=== PATIENT | male | born 1995 | race Caucasian/White ===

== ENCOUNTER 2020-11-15 11:21 | Emergency (ER) | payer MEDICAID, SELFPAY ==
[2020-11-15 11:24] VITALS: BP 128/88; PULSE 85; RESP 16; TEMP 36.6; O2SAT 97
[2020-11-15] MEDS: Normal Saline 1,000 ML 1000 ML IV (12:05)
[2020-11-15] MEDS: Ketorolac 30 MG/ML VIAL IVP (12:10)
[2020-11-15] MEDS: Ondansetron 4 MG/2 ML VIAL IVP (12:15)
[2020-11-15 12:17] LABS: Absolute Basophil Count 0.01 10^3/uL (0.0-0.2); Absolute Eosinophil Count 0.01 10^3/uL (0.0-0.7); Absolute Lymphocyte Count 1.28 10^3/uL (1.2-3.4); Absolute Monocyte Count 0.53 10^3/uL (0.1-0.8); Absolute Neutrophil Count 1.06 10^3/uL (1.2-6.7); Basophils % 0.3; Eosinophils % 0.3; HCT 49.8 % (40.0-50.0); HGB 16.8 g/dL (13.5-17.5); Lymphocytes % 44.3; MCH 29.4 pg (27.0-33.0); MCHC 33.7 % (32.0-36.0); MCV 87.1 fL (80-95); MPV 10.1 fL (8.0-11.0); Monocytes % 18.3; Neutrophils % 36.8; Nucleated RBC 0 %; Platelet Count 151 10^3/uL (130-400); RBC 5.72 10^6/uL (4.36-5.78); RDW 11.6 % (11.8-14.1); RDW-SD 37.2 fL; WBC 2.89 10^3/uL (4.4-10.8)
[2020-11-15 12:30] LABS: ALT 87 U/L (16-63); AST 46 U/L (15-37); Albumin 4.3 g/dL (3.4-5.0); Alkaline Phosphatase 99 U/L (46-116); Anion Gap 11.6 mmol/L (3-11); BUN 19 mg/dL (7-18); Bilirubin, Total 0.5 mg/dL (0.2-1.0); CO2 28.4 mmol/L (21.0-32.0); CREATININE 1.4 mg/dL (0.70-1.30); Calcium 9.2 mg/dL (8.5-10.1); Chloride 101 mmol/L (98-107); Glucose 90 mg/dL (74-106); Potassium 4.1 mmol/L (3.5-5.1); Sodium 141 mmol/L (136-145); Total Protein 8.3 g/dL (6.4-8.2)
[2020-11-15 12:44] LABS: Bilirubin Small (Negative); Blood Negative (Negative); Clarity Clear (Clear); Glucose Negative (Negative); Ketones 15 mg/dL (Negative); Leukocyte Esterase Negative (Negative); Nitrite Negative (Negative); Specific Gravity >= 1.030 (1.005-1.025); Urobilinogen 0.2 EU/dL (Up TO 0.2); pH 5.5 (5-8)
[2020-11-15] MEDS: Lactated Ringers 1,000 ML 1000 ML IV (12:51)
--- NOTE | 2020-11-15 13:02 | ED.GENADUL_ITS ---
Discharge Plan Disposition Patient Disposition: HOME Condition: Stable Discharge Details Clinical Impression: Neutropenia, Nausea, Cephalalgia Primary Care Provider: Unknown,Unknown ED Provider: Chong Garvey Home Meds and New Rx's Prescriptions: New ondansetron HCl [Zofran] 4 mg tablet 4 mg PO Q8H PRNQty: 10 RF: 0 No Action No Known Home Meds RF: 0 Discharge Instructions Instructions: Acute Nausea and Vomiting (ED), Neutropenia (ED), General Headache (ED) Additional Instructions: At this time your white cell count is low which does require further investigation. I have placed you on the care management list to help expedite outpatient primary care follow-up. [id number] Tylenol and/or Motrin as directed for discomfort. Zofran as directed for nausea. Please watch for new or worsening symptoms and return to the ER for any concerns. Plenty of fluids to avoid dehydration. Covid test is pending, you should be quarantining until the test has come back negative. Stand Alone Forms: PENDING COVID-19 TESTING Discharge Data Discharge Date/Time-TO BE ENTERED AT DEPARTURE: 11/15/20 14:15 Medical Decision Making This is a 25-year-old male, denies significant past medical history, presenting to the ER concerned of heatstroke. Worked outside and Sunday in the sun all day, began not feeling well Sunday evening. He has not taken any medications for his symptoms. Clinically he appears well, nontoxic. He is afebrile, hemodynamically stable, neurologically intact, and no evidence of nuchal rigidity. Moving his neck freely, using the cell phone without difficulty. Discussed options. Patient is agreeable to obtaining IV access, given IV fluids, Zofran, Toradol, CBC, CMP, urinalysis and reassessment. We will also obtain Covid swab. Laboratory values reveal a white blood cell count of 2.89. I have no previous labs to compare, I do not know if this is acute neutropenia or not. Hemoglobin 16.8 hematocrit 49.8, platelet count 151. No evidence of pancytopenia. Sodium 141 potassium 4.1 BUN 19 creatinine 1.4 with a GFR greater than 60. Calcium 9.2 AST 46 ALT 87 alk phosphatase 99 urinalysis 15 ketones, no signs of obvious infection. Upon reevaluation patient reports that he is asymptomatic. No discomfort, headache, fatigue, nausea whatsoever. He appears well, nontoxic and continues to have no nuchal rigidity whatsoever. Discussed laboratory values. Will place patient on the care management list to expedite outpatient primary care follow- up for reevaluation of his current symptoms as well as his neutropenia. Patient has no additional questions or concerns and is comfortable discharge at this time. He was given standard discharge and return precautions. Lab Data Lab results reviewed: Yes I reviewed the patient's lab results. Labs: Laboratory Tests Range/Units 11/15/20 11/15/20 11/15/20 12:00 12:00 12:30 WBC (4.4-10.8) 10^3/uL 2.89 L RBC (4.36-5.78) 10^6/uL 5.72 Hgb (13.5-17.5) g/dL 16.8 Hct (40.0-50.0) % 49.8 MCV (80-95) fL 87.1 MCH (27.0-33.0) pg 29.4 MCHC (32.0-36.0) % 33.7 RDW (11.8-14.1) % 11.6 L Plt Count (130-400) 10^3/uL 151 MPV (8.0-11.0) fL 10.1 Immature Gran % 0.0 Neutrophils % 36.8 Lymphocytes % 44.3 Monocytes % 18.3 Eosinophils % 0.3 Basophils % 0.3 Nucleated RBC % % 0 Absolute Neutrophils (1.2-6.7) 10^3/uL 1.06 L Absolute Lymphocytes (1.2-3.4) 10^3/uL 1.28 Absolute Monocytes (0.1-0.8) 10^3/uL 0.53 Absolute Eosinophils (0.0-0.7) 10^3/uL 0.01 Absolute Basophils (0.0-0.2) 10^3/uL 0.01 Sodium (136-145) mmol/L 141 Potassium (3.5-5.1) mmol/L 4.1 Chloride (98-107) mmol/L 101 Carbon Dioxide (21.0-32.0) mmol/L 28.4 Anion Gap (3-11) mmol/L 11.6 H BUN (7-18) mg/dL 19 H Creatinine (0.70-1.30) mg/dL 1.4 H Estimated GFR/1.73 m2 (mL/min/1.73m2) >= 60.00 Glucose (74-106) mg/dL 90 Calcium (8.5-10.1) mg/dL 9.2 Total Bilirubin (0.2-1.0) mg/dL 0.5 AST (15-37) U/L 46 H ALT (16-63) U/L 87 H Alkaline Phosphatase (46-116) U/L 99 Total Protein (6.4-8.2) g/dL 8.3 H Albumin (3.4-5.0) g/dL 4.3 Urine Color (Yellow) Yellow Urine Clarity (Clear) Clear Urine pH (5-8) 5.5 Ur Specific Chadron (1.005-1.025) >= 1.030 H Urine Protein (Negative) mg/dL 30 H Urine Ketones (Negative) mg/dL 15 H Urine Blood (Negative) Negative Urine Nitrite (Negative) Negative Urine Bilirubin (Negative) Small H Urine Urobilinogen (Up TO 0.2) EU/dL 0.2 Ur Leukocyte Esterase (Negative) Negative Urine RBC (0-2) HPF Negative Urine WBC (0-5) HPF 0-2 Ur Epithelial Cells (Negative) HPF Rare Urine Crystals (Negative) HPF Negative Urine Bacteria (Negative) HPF Few Urine Casts (Negative) LPF Negative Urine Mucus (Negative) Moderate Ur Culture Indicated? No Urine Glucose (Negative) mg/dL Negative HPI General Mode of arrival: ambulatory . Date/Time Provider Initiated Documentation: 11/15/20 11:22 . Limitations to Documentation: no limitations . Information obtained by: patient . HPI Narrative: This is a 25-year-old male, denies significant past medical history, presenting to the ER for evaluation concerned that he may have heatstroke. He reports that he worked outside in the sun all day and Sunday, did drink some water, but then Sunday night developed a mild dull global headache, felt generalized weakness, and had some nausea but no vomiting. He subjectively felt warm but never did take his temperature. Denies recent illness or trauma. Denies blurry vision, neck pain, chest pain, shortness of breath, cough, abdominal pain, change in bowel or bladder function, focal weakness, numbness, tingling, weakness. He denies recent travel or sick contacts. He has not taken any medication for his symptoms. Related Data Home Medications Medication Instructions Recorded Confirmed Unknown [No Known Home Meds] 11/15/20 11/15/20 ondansetron HCl [Zofran] 4 mg PO Q8H PRN #10 tab 11/15/20 Previous Rx's Medication Instructions Recorded ondansetron HCl [Zofran] 4 mg PO Q8H PRN #10 tab 11/15/20 Allergies Allergy/AdvReac Type Severity Reaction Status Date / Time No Known Allergies Allergy Unverified 11/15/20 11:30 General Stated Complaint: Headache BETHANY: 3 Review of Systems Constitutional Constitutional: Denies chills, Denies fever(s), Reports headache(s) and Reports malaise Eyes Eyes: Denies change in vision ENT Ears, Nose, Mouth, and Throat: Reports headache(s) and Denies neck pain Cardiovascular Cardiovascular: Denies chest pain and Denies dyspnea Respiratory Respiratory: Denies cough and Denies dyspnea Gastrointestinal Gastrointestinal: Denies abdominal pain, Denies diarrhea, Reports nausea and Denies vomiting Genitourinary Genitourinary: Denies dysuria Musculoskeletal Musculoskeletal: Denies back pain, Reports myalgias, Denies neck pain, Denies numbness and Denies tingling Integumentary/Breasts Skin/Breast: Denies rash Neurologic Neurologic: Reports headache(s), Denies numbness, Denies tingling and Reports weakness (Generalized) [facility] Social History Smoking/Tobacco Use Status: Former Tobacco Use Smoking risk assessment performed?: Yes Alcohol Intake: former Substance use type: does not use Details: no alcohol or tobacco for a long time Do you feel safe at home: Yes Do you feel safe in your relationship?: Yes Exam Const General: cooperative, healthy appearing, comfortable and no acute distress Orientation: alert, awake and oriented x3 HENMT Head: normal to inspection, normocephalic and atraumatic Ears: external ears normal, TM's normal bilaterally and EAC's normal Face and sinus: normal facial exam Mouth: moist mucous membranes Throat: posterior oropharynx normal Eyes General: appearance normal, both eyes and all related structures Alignment and Position: alignment normal Periorbital: periorbital findings normal Eyelids: eyelids normal Conjunctivae: conjunctivae normal Sclera: sclerae normal Cornea: corneas normal Pupils: PERRL EOM: EOM intact bilaterally Direct ophthalmoscopy: normal light reflex Neck Neck: normal visual inspection, full ROM, no lymphadenopathy, no meningeal signs, trachea midline, supple and nontender Resp Effort & Inspection: normal respiratory effort and able to speak in complete sentences Auscultation: clear to auscultation bilaterally Cardio Rate: regular rate Rhythm: regular rhythm GI Palpation: soft, not firm, no guarding, no pulsatile masses and nontender Auscultation: normal bowel sounds Back/Spine/Pelvis Back: no CVA tenderness and No back tenderness Skin General skin exam: no rashes or lesions noted Neuro General: patient alert, patient awake, patient oriented x3, moves all extremities and no focal motor deficits Cognition: normal cognition Speech: speech normal Gait: normal gait Motor: muscle tone normal throughout Sensory Exam: no sensory deficits noted Extrem General: normal to inspection, full ROM and capillary refill normal Psych Appearance: grossly normal Mental Status: mental status grossly normal Course Vital Signs Vital signs: Vital Signs Temperature 36.6 C 11/15/20 11:24 Pulse 85 11/15/20 11:24 Respiratory Rate 16 11/15/20 11:24 Blood Pressure 128/88 11/15/20 11:24 Pulse Oximetry 97 11/15/20 11:24 Temperature 36.6 C 11/15/20 11:24 Temperature Source Skin 11/15/20 11:24 Pulse 85 11/15/20 11:24 Respiratory Rate 16 11/15/20 11:24 Respiratory Effort 11/15/20 11:31 Blood Pressure 128/88 11/15/20 11:24 Blood Pressure Position Sitting 11/15/20 11:24 Pulse Oximetry 97 11/15/20 11:24 Oxygen Delivery Method Room Air 11/15/20 11:24 Oxygen Flow Rate 0 11/15/20 11:24 Pain Level 4 11/15/20 11:24 Comment 11/15/20 11:24 Lab/Test Results Lab/Test Results: Laboratory Tests Range/Units 11/15/20 11/15/20 11/15/20 12:00 12:00 12:30 WBC (4.4-10.8) 10^3/uL 2.89 L RBC (4.36-5.78) 10^6/uL 5.72 Hgb (13.5-17.5) g/dL 16.8 Hct (40.0-50.0) % 49.8 MCV (80-95) fL 87.1 MCH (27.0-33.0) pg 29.4 MCHC (32.0-36.0) % 33.7 RDW (11.8-14.1) % 11.6 L Plt Count (130-400) 10^3/uL 151 MPV (8.0-11.0) fL 10.1 Immature Gran % 0.0 Neutrophils % 36.8 Lymphocytes % 44.3 Monocytes % 18.3 Eosinophils % 0.3 Basophils % 0.3 Nucleated RBC % % 0 Absolute Neutrophils (1.2-6.7) 10^3/uL 1.06 L Absolute Lymphocytes (1.2-3.4) 10^3/uL 1.28 Absolute Monocytes (0.1-0.8) 10^3/uL 0.53 Absolute Eosinophils (0.0-0.7) 10^3/uL 0.01 Absolute Basophils (0.0-0.2) 10^3/uL 0.01 Sodium (136-145) mmol/L 141 Potassium (3.5-5.1) mmol/L 4.1 Chloride (98-107) mmol/L 101 Carbon Dioxide (21.0-32.0) mmol/L 28.4 Anion Gap (3-11) mmol/L 11.6 H BUN (7-18) mg/dL 19 H Creatinine (0.70-1.30) mg/dL 1.4 H Estimated GFR/1.73 m2 (mL/min/1.73m2) >= 60.00 Glucose (74-106) mg/dL 90 Calcium (8.5-10.1) mg/dL 9.2 Total Bilirubin (0.2-1.0) mg/dL 0.5 AST (15-37) U/L 46 H ALT (16-63) U/L 87 H Alkaline Phosphatase (46-116) U/L 99 Total Protein (6.4-8.2) g/dL 8.3 H Albumin (3.4-5.0) g/dL 4.3 Urine Color (Yellow) Yellow Urine Clarity (Clear) Clear Urine pH (5-8) 5.5 Ur Specific [place]ron (1.005-1.025) >= 1.030 H Urine Protein (Negative) mg/dL 30 H Urine Ketones (Negative) mg/dL 15 H Urine Blood (Negative) Negative Urine Nitrite (Negative) Negative Urine Bilirubin (Negative) Small H Urine Urobilinogen (Up TO 0.2) EU/dL 0.2 Ur Leukocyte Esterase (Negative) Negative Urine Glucose (Negative) mg/dL Negative
[2020-11-15 13:04] LABS: Epithelial Cells Rare HPF (Negative); RBC Negative HPF (0-2); WBC 0-2 HPF (0-5)
[2020-11-15 13:05] LABS: Bacteria Few HPF (Negative); C & S Indicated? No; Casts Negative LPF (Negative); Crystals Negative HPF (Negative); Mucus Moderate (Negative)
[2020-11-15 14:09] VITALS: BP 136/70; PULSE 54; RESP 16; TEMP 36.5; O2SAT 98
[2020-11-15 14:15] VITALS: BP 136/70; PULSE 54; RESP 16; TEMP 36.5; O2SAT 98
--- NOTE | 2020-11-15 16:40 | NUR.NOTE ---
Nursing Note: Referral given to Care Management for follow up for neutropenia, and to establish care PCP. Lexi Gray
[2020-11-16 12:34] LABS: COVID-19 RT-PCR UVMMC Result Positive (Negative)
== END 2020-11-15 14:15 | disposition home or self-care (01) ==
PROVIDERS: Emergency Provider Physician Assistant
DX: U07.1 COVID-19 (principal); R11.2 Nausea with vomiting, unspecified
CPT/HCPCS: 80053; 96361; 96374; 96375; 99284; U0003; 81003; 81015; 85025; 99283; J1885; J2405

== ENCOUNTER 2024-03-03 16:17 | Outpatient (REF) | payer OTHER, SELFPAY ==
[2024-03-03 18:23] LABS: Abs Immature Grans 0.02 10^3/uL (0.0-0.06); Absolute Basophil Count 0.03 10^3/uL (0.0-0.2); Absolute Eosinophil Count 0.02 10^3/uL (0.0-0.7); Absolute Monocyte Count 0.44 10^3/uL (0.1-0.8); Absolute Neutrophil Count 6.02 10^3/uL (1.2-6.7); Basophils % 0.4 %; Eosinophils % 0.3 %; HCT 43.8 % (40.0-50.0); HGB 15.1 g/dL (13.5-17.5); Immature Grans % 0.3 %; Lymphocytes % 14.4 %; MCH 29.6 pg (27.0-33.0); MCHC 34.5 % (32.0-36.0); MCV 86 fL (80-95); MPV 10.7 fL (8.0-11.0); Monocytes % 5.8 %; Neutrophils % 78.8 %; Platelet Count 223 10^3/uL (130-400); RDW 11.7 % (11.8-14.1); RDW-SD 36.7 fL; WBC 7.63 10^3/uL (4.4-10.8)
[2024-03-03 18:55] LABS: ALT 66 U/L (16-63); AST 27 U/L (15-37); Albumin 4.6 g/dL (3.4-5.0); Alkaline Phosphatase 95 U/L (46-116); Anion Gap 9.9 mmol/L (3-11); BUN 15 mg/dL (7-18); Bilirubin, Total 0.48 mg/dL (0.2-1.0); CO2 29.1 mmol/L (21.0-32.0); CREATININE 1.3 mg/dL (0.70-1.30); Calcium 9.7 mg/dL (8.5-10.1); Calculated LDL 115 mg/dL (<100); Chloride 102 mmol/L (98-107); Cholesterol 182 mg/dL (<200); Estimated GFR 75.79 (mL/min/1.73m2); Glucose 164 mg/dL (74-106); HDL Cholesterol 51 mg/dL (40-60); Potassium 3.9 mmol/L (3.5-5.1); Sodium 141 mmol/L (136-145); TSH (W/Ref FT4) 2.06 uIU/mL (0.36-3.74); Total Protein 7.8 g/dL (6.4-8.2); Triglyceride 83 mg/dL (<150); Vitamin B12 506 pg/mL (193-986); Vitamin D 25 Total 16.9 ng/mL (30-100)
== END 2024-03-03 16:18 | disposition home or self-care (01) ==
LOC: LBN 16:17
PROVIDERS: Visit Provider Nurse Practitioner Family
DX: Z00.00 Encounter for general adult medical examination without abnormal findings (principal); E55.9 Vitamin D deficiency, unspecified; D51.3 Other dietary vitamin B12 deficiency anemia; I10 Essential (primary) hypertension; E78.5 Hyperlipidemia, unspecified
CPT/HCPCS: 80053; 80061; 82306; 82607; 84443; 85025

== ENCOUNTER 2024-03-07 18:27 | Outpatient (REF) | payer OTHER, SELFPAY ==
[2024-03-07 13:54] LABS: Hemoglobin A1C 5.4 % (<5.7)
== END 2024-03-07 18:28 | disposition home or self-care (01) ==
LOC: LBN 18:27
PROVIDERS: PCP Nurse Practitioner Family; Visit Provider Nurse Practitioner Family
DX: R73.09 Other abnormal glucose (principal); I10 Essential (primary) hypertension
CPT/HCPCS: 83036